=== PATIENT | female | born 1965 | race Caucasian/White ===

== ENCOUNTER 2019-01-09 11:12 | Inpatient (IN) | payer OTHER ==
[~2019-01-09] VITALS: Ht 157.5 cm; Wt 83.5 kg
[2019-01-21] MEDS ORDERED: COZAAR25 MG PO (14:04)
== END 2019-02-04 12:16 | disposition home or self-care (01) | DRG 329 ==
LOC: SURG 01-21 10:15 → O/R 01-28 05:10 → SURG 01-28 10:15
PROVIDERS: ADMIT Colon & Rectal Surgery
PROC: 07TD4ZZ Resection of Aortic Lymphatic, Percutaneous Endoscopic Approach (ICD-10-PCS; 2019-01-28)
PROC: 4A12X4Z Monitoring of Cardiac Electrical Activity, External Approach (ICD-10-PCS; 2019-01-28)
PROC: 0DTF4ZZ Resection of Right Large Intestine, Percutaneous Endoscopic Approach (ICD-10-PCS; principal; 2019-01-28 10:45)
PROC: 3E0F7GC Introduction of Other Therapeutic Substance into Respiratory Tract, Via Natural or Artificial Opening (ICD-10-PCS; 2019-01-30)
PROC: BB24ZZZ Computerized Tomography (CT Scan) of Bilateral Lungs (ICD-10-PCS; 2019-01-31)
PROC: 4A033R1 Measurement of Arterial Saturation, Peripheral, Percutaneous Approach (ICD-10-PCS; 2019-01-31)
DX: D12.0 Benign neoplasm of cecum (principal); J18.1 Lobar pneumonia, unspecified organism; K92.1 Melena; J95.89 Other postprocedural complications and disorders of respiratory system, not elsewhere classified; J98.11 Atelectasis; K63.89 Other specified diseases of intestine; R59.0 Localized enlarged lymph nodes; I11.9 Hypertensive heart disease without heart failure; G47.33 Obstructive sleep apnea (adult) (pediatric); E66.09 Other obesity due to excess calories; R06.02 Shortness of breath; D56.3 Thalassemia minor

== ENCOUNTER 2019-04-23 14:38 | Emergency (ER) | payer OTHER ==
[~2019-04-23] VITALS: Ht 157.5 cm; Wt 79.4 kg
[~2019-04-23 14:38] MED LIST: COZAAR25 MG PO
== END 2019-04-23 23:39 | disposition home or self-care (01) ==
LOC: ER 14:38
DX: K52.89 Other specified noninfective gastroenteritis and colitis (principal)

== ENCOUNTER 2020-02-06 06:18 | Day surgery (SDC) | payer OTHER | END 2020-02-06 11:25 | disposition home or self-care (01) | LOC: AMB-ENDOS 06:18 | PROVIDERS: ATTEND Colon & Rectal Surgery | DX: K62.89 Other specified diseases of anus and rectum (principal); K64.1 Second degree hemorrhoids; Z20.828 Contact with and (suspected) exposure to other viral communicable diseases ==